=== PATIENT | female | born 1975 | race Caucasian/White ===

== ENCOUNTER 2017-10-16 17:05 | Emergency (ER) | payer MEDICAID ==
[2017-10-16] MEDS ORDERED: HYDROmorphone 2 MG/ML SDV IM ONE (17:28)
[2017-10-16] MEDS ORDERED: Ondansetron 4 MG Tab.DIS PO SCH (17:30)
--- NOTE | 2017-10-16 17:34 | EDM.PDOC ---
ED HPI GENERAL MEDICAL PROBLEM - General Chief Complaint: Lower Extremity Injury/Pain Stated Complaint: FELL,HURT LEFT ANKLE Time Seen by Provider: 10/16/17 17:10 Source of Information: Reports: Patient History Limitations: Reports: No Limitations - History of Present Illness INITIAL COMMENTS - FREE TEXT/NARRATIVE: walking down the bottom step at homeand twisted the left ankle with inversion sprain marked pain,and marked swelling, no prev ankle injury or frx. smoke 12ppd 15 years Onset: Today Onset Date: 10/16/17 Onset Time: 16:30 Location: Reports: Lower Extremity, Left Improves with: Reports: Immobilization Worsens with: Reports: Movement Context: Reports: Activity Associated Symptoms: Reports: No Other Symptoms L ankle pain Pain Score (Numeric/FACES): 8 - Related Data Allergies Allergy/AdvReac Type Severity Reaction Status Date / Time codeine Allergy Nausea and Verified 10/16/17 17:20 Vomiting Home Meds: Home Meds Hydrocodone/Acetaminophen [Hydrocodon-Acetaminophen 5-325] 1 each PO Q4HR PRN # 8 tablet 10/16/17 [Rx] Levothyroxine 175 mcg PO ACBRK 10/16/17 [History] Phentermine HCl 30 mg PO DAILY 10/16/17 [History] Review of Systems - Review of Systems Review Of Systems: See Below Constitutional: Reports: No Symptoms Eyes: Reports: No Symptoms Ears: Reports: No Symptoms Nose: Reports: No Symptoms Mouth/Throat: Reports: No Symptoms Respiratory: Reports: No Symptoms Cardiovascular: Reports: No Symptoms GI/Abdominal: Reports: No Symptoms Genitourinary: Reports: No Symptoms Musculoskeletal: Reports: No Symptoms, Other (now left ankle pain) Skin: Reports: No Symptoms Neurological: Reports: No Symptoms Psychiatric: Reports: No Symptoms ED EXAM, GENERAL - Physical Exam Exam: See Below Free Text/Narrative:: left inkle inversion sprain going down one stair Exam Limited By: No Limitations General Appearance: Alert Ears: Normal External Exam Nose: Normal Inspection Throat/Mouth: Normal Inspection Head: Atraumatic Neck: Normal Inspection Respiratory/Chest: No Respiratory Distress Cardiovascular: Normal Peripheral Pulses, Regular Rate, Rhythm, No Edema, No Gallop, No JVD, No Murmur, No Rub Peripheral Pulses: 1+: Dorsalis Pedis (L), Dorsalis Pedis (R) GI/Abdominal: Normal Bowel Sounds, Soft, Non-Tender Back Exam: Normal Inspection Extremities: Joint Swelling (left ankle severe apin increasedwith attempted eversion, mod swelling, ), Leg Pain, Limited Range of Motion, Other Neurological: Alert, Oriented, CN II-XII Intact, Normal Cognition, No Motor/ Sensory Deficits Psychiatric: Normal Affect Skin Exam: Warm Lymphatic: No Adenopathy Course - Vital Signs Text/Narrative:: air splint placed, crutches, ice, Last Recorded V/S: Last Vital Signs Temp 36.6 C 10/16/17 17:14 Pulse 101 H 10/16/17 17:14 Resp 20 10/16/17 17:14 BP 142/104 H 10/16/17 17:14 Pulse Ox 100 10/16/17 17:14 - Orders/Labs/Meds Orders: Active Orders 24 hr Category Date Time Status Ankle Min 3V Lt [CR] Urgent Exams 10/16/17 16:59 Taken Ondansetron [Zofran ODT] Med 10/16/17 17:30 Active 4 mg PO ONETIME Medication Orders Ondansetron HCl (Zofran Odt) 4 mg PO ONETIME BRADY Meds: Medications Generic Name Dose Route Start Last Admin Trade Name Freq PRN Reason Stop Dose Admin Ondansetron HCl 4 mg 10/16/17 17:30 Zofran Odt PO ONETIME BRADY Discontinued Medications Generic Name Dose Route Start Last Admin Trade Name Freq PRN Reason Stop Dose Admin Hydromorphone HCl 1 mg 10/16/17 17:28 Dilaudid IM 10/16/17 17:29 ONETIME ONE - Radiology Interpretation Free Text/Narrative:: preliminary left ankle xray no frx Departure - Departure Time of Disposition: 18:45 Disposition: Home, Self-Care 01 Condition: Good Clinical Impression: Ankle sprain Qualifiers: Encounter type: initial encounter Involved ligament of ankle: deltoid ligament Laterality: left Qualified Code(s): S93.422A - Sprain of deltoid ligament of left ankle, initial encounter - Discharge Information *PRESCRIPTION DRUG MONITORING PROGRAM REVIEWED*: No *COPY OF PRESCRIPTION DRUG MONITORING REPORT IN PATIENT [place]: No Prescriptions: Hydrocodone/Acetaminophen [Hydrocodon-Acetaminophen 5-325] 1 each PO Q4HR PRN # 8 tablet PRN Reason: Pain Instructions: Crutch Use, Adult, [id number], Acetaminophen; Hydrocodone tablets or capsules, Ondansetron oral dissolving tablet, Ankle Sprain, Easy-to- Read, Hydromorphone injection Referrals: Quang Vera MD [Primary Care Provider] - Forms: ED Department Discharge Additional Instructions: left ankle sprain, there was no ankle fracture noted on the xray. if the radiologist , on reading the xrays tomorrow finds there is an abnormality then someone will call you ice for 20-30 minutes 4-6 times daily pain & swelling for next few days Ibuprofen 600mg with Tylenol 1000mg every 6hours for moderate pain, for break through pain not relieved by these you have hydrocodone/acetaminophen 5/325 1 tablet every 4-6 hours, use them sparingly for severe pain NO MORE THAN 4000MG OF TYLENOL IN 24 HOUR PERIOD elevate your leg above your heart , use ice and only get up to go to the bathroom and eat or shower follow up with your MD 7 days use crutches and air splint - My Orders Last 24 Hours: My Active Orders 10/16/17 16:59 Ankle Min 3V Lt [CR] Urgent 10/16/17 17:30 Ondansetron [Zofran ODT] 4 mg PO ONETIME - Assessment/Plan Last 24 Hours: My Active Orders 10/16/17 16:59 Ankle Min 3V Lt [CR] Urgent 10/16/17 17:30 Ondansetron [Zofran ODT] 4 mg PO ONETIME
[2017-10-16] MEDS ORDERED: Acetaminophen/HYDROcodone 325-5 MG Tab PO ONE (18:16)
[2017-10-16 19:31] VITALS: BP 123/67
--- NOTE | 2017-10-17 11:14 | CR ---
INDICATION: Ankle sprain, inversion injury. LEFT ANKLE: Three views of the left ankle were obtained and revealed soft tissue swelling overlying the malleoli, especially medially. There appears to be widening of the ankle mortise medially. No comparison studies were available , however, and this finding could be acute. Mild hypertrophic degenerative changes are noted at the malleoli and off the adjacent talus, compatible with posttraumatic osteoarthritis. A definite fracture site was not identified. IMPRESSION: 1. No definite acute fracture or dislocation. There is an appearance of widening of the ankle mortise medially, which is of questionable significance and could possibly be related to an acute process - minimal subluxation. It could also be on the basis of previous injury. If old films are available for comparison, they may be of further diagnostic benefit. 2. Posttraumatic osteoarthritis. PEDROD
== END 2017-10-16 18:42 | disposition home or self-care (01) ==
LOC: FB.ED 17:05
DX: S93.422A Sprain of deltoid ligament of left ankle, initial encounter (principal); Z79.899 Other long term (current) drug therapy; X50.1XXA Overexertion from prolonged static or awkward postures, initial encounter; Z88.5 Allergy status to narcotic agent
CPT/HCPCS: 73610; 96372; 99283; A9270; J1170

== ENCOUNTER 2022-01-08 12:37 | Emergency (ER) | payer MEDICAID ==
[2022-01-08] MEDS ORDERED: Morphine 4 MG/ML VIAL IVPUSH ONE (12:59)
[2022-01-08] MEDS ORDERED: Ondansetron 4 MG/2 ML SDV IVPUSH ONE (13:00)
[2022-01-08] MEDS ORDERED: cefTRIAXone 2 GM Vial IVPUSH ONE (13:00)
[2022-01-08] MEDS ORDERED: Labetalol 20 MG/4 ML Syringe IVPUSH ONE (13:03)
[2022-01-08] MEDS ORDERED: Dexamethasone 4 MG/ML 5 ML MDV IVPUSH ONE (13:25)
[2022-01-08 14:04] LABS: ESTIMATED GFR 109 mL/min (>60)
[2022-01-08 14:56] VITALS: BP 123/78; PULSE 91
== END 2022-01-08 14:54 | disposition home or self-care (01) ==
LOC: FB.ED 12:37
DX: H60.91 Unspecified otitis externa, right ear (principal); Z88.5 Allergy status to narcotic agent; Z79.899 Other long term (current) drug therapy
CPT/HCPCS: 36415; 80053; 85025; 86140; 96374; 96375; 99283; J0696; J1100; J2270; J2405; J3490

== ENCOUNTER 2024-05-04 12:07 | Emergency (ER) | payer OTHER, MEDICAID ==
[2024-05-04] MEDS: Morphine 10 MG/ML SDV IM ONE (12:38)
[2024-05-04] MEDS: hydrOXYzine HCl 50 MG/ML SDV IM ONE (12:38)
[2024-05-04] MEDS: fentaNYL 100 MCG/2 ML SDV IVPUSH ONE (13:59)
[2024-05-04] MEDS: Midazolam 1 MG/ML 2 ML SDV IVPUSH ONE (14:01)
[2024-05-04 15:33] VITALS: BP 144/89; PULSE 92
== END 2024-05-04 15:20 | disposition home or self-care (01) ==
LOC: FB.ED 12:07
DX: S43.015A Anterior dislocation of left humerus, initial encounter (principal); S93.422A Sprain of deltoid ligament of left ankle, initial encounter; I10 Essential (primary) hypertension; E03.9 Hypothyroidism, unspecified; Z88.5 Allergy status to narcotic agent; Z79.890 Hormone replacement therapy; W18.40XA Slipping, tripping and stumbling without falling, unspecified, initial encounter; Y93.89 Activity, other specified
CPT/HCPCS: 23650; 23655; 73030; 96372; 99283; J2250; J2272; J3010; J3410